=== PATIENT | male | born 1990 | race Caucasian/White ===

== ENCOUNTER 2017-02-27 11:59 | Emergency (ER) | payer OTHER ==
--- NOTE | ~2017-02-27 | EKG ---
PATIENT: LIZ CLARK UNIT #: [id number] Ventricular Rate: 83 BPM Atrial Rate: 83 BPM P-R Interval: 166 ms QRS Duration: 104 ms Q-T Interval: 348 ms QTC Calculation(Bezet): 408 ms P Wan[place]: 78 degrees Calculated R Wan[place]: 91 degrees Calculated T Wan[place]: 65 degrees Diagnosis Line: Normal sinus rhythm Diagnosis Line: Rightward axis Diagnosis Line: Borderline ECG Diagnosis Line: No previous ECGs available Diagnosis Line: Confirmed by YOON GUTIERREZ MD ([id number]) on Diagnosis Line: 02/28/2017 9:07:00 PM INTERPRETING MD: NORMA
--- NOTE | ~2017-02-27 | CR72 ---
[facility] A Service of [facility] & [facility] RADIOLOGY TEXT RESULTS PATIENT: LIZ CLARK LOCATION: [facility] : 88 UNIT #: [id number] AGE: [address]: Madhav Lomax MD SEX: M ORDER DR: [id number] [facility] [address] [facility] [place] [facility] [place], [place] [address] [id number] E MR#: [id number] Acc #: [id number] NAME: LIZ CLARK : 1990 SEX: M STUDY DATE/TIME: 02/27/2017 12:58 UNIT: [facility] ROOM: STUDY DESCRIPTION: CR Chest Single View Portable Attending Physician: Madhav Lomax M.D. Ordering Physician: Madhav Lomax M.D. Primary Care Physician: Winnie Ferguson M.D. MEDICAL IMAGING REPORT This report is preliminary unless electronic signature is present EXAM Chest, portable, 02/27/2017, 1258 hours. CLINICAL HISTORY Left-sided chest pain with shortness of air for 2 days. COMPARISON None FINDINGS Portable upright chest demonstrates normal cardiac, mediastinal, and hilar contours. There is mild basilar vascular prominence but no edema, pneumonia, or effusion seen. IMPRESSION No acute cardiopulmonary findings. Dictated by... Radha Landeros M.D. THIS IS AN ELECTRONICALLY VERIFIED REPORT Radha Landeros M.D. at 02/27/2017 7:31 PM ELLIE/medardo TD: 02/27/2017 14:42 JOB #: [id number] MEDICAL IMAGING REPORT Page 1 of 1 COPY
[~2017-02-27 11:59] MED LIST: ADDERALL PO; IBUPROFEN PO; IBUPROFEN400 MG PO; KETOPROFEN PO; NAPROSYN250 M1 PO; VYVANSE20 MG PO
[2017-02-27 12:36] LABS: BASOPHIL# 0.1 X10e3 (0-0.3); EOSINOPHIL# 0.1 X10e3 (0-0.7); EOSINOPHIL% 1.2 % (0.0-7.0); HEMATOCRIT 47.1 % (38.0-50.0); HEMOGLOBIN 16.1 gm/dL (13.0-16.0); LYMPHOCYTE# 2.3 X10e3 (1.0-3.5); LYMPHOCYTE% 38.5 % (17.0-45.0); MEAN CELL VOLUME 83.1 FL (83-96); MEAN CORPUSCULAR HEMOGLOBIN 28.4 PG (28-34); MEAN CORPUSCULAR HGB CONC 34.1 g/dL (30-36); MEAN PLATELET VOLUME 8.8 FL (6.5-11.5); MONOCYTE# 0.2 X10e3 (0-1.0); MONOCYTE% 3.7 % (3.0-12.0); NEUTROPHIL# 3.3 X10e3 (1.5-7.1); NEUTROPHIL% 55.6 % (40-75); PLATELET COUNT 170 X10e3 (140-420); RED BLOOD COUNT 5.66 X10e (3.90-5.60); RED CELL DISTRIBUTION WIDTH 13.7 % (11.0-15.5)
[2017-02-27 12:51] LABS: PARTIAL THROMBOPLASTIN TIME 31.1 SECONDS (23.5-31.3); PROTHROMBIN TIME (PATIENT) 10.4 SECONDS (9.6-11.5)
[2017-02-27 12:52] LABS: DIFF IND NO
[2017-02-27 12:59] LABS: POC - TROPONIN <0.05 ng/mL (<=0.05)
[2017-02-27 13:02] LABS: ALBUMIN SERUM 4.5 g/dL (3.5-5.0); BILIRUBIN, DIRECT 0.1 mg/dL (0.0-0.2); BILIRUBIN,INDIRECT 0.7 mg/dL (0.0-0.9); BILIRUBIN,TOTAL 0.8 mg/dL (0.2-2.0); CALCIUM SERUM 9.4 mg/dL (8.4-10.2); GLOM FILT RATE Estimated 102.7 mL/min (>60); POTASSIUM 3.6 mmol/L (3.5-5.1); PROTEIN TOTAL SERUM 7.2 g/dL (6.0-8.3)
== END 2017-02-27 14:41 | disposition home or self-care (01) ==
LOC: CED 11:59
PROVIDERS: Emergency Medicine
DX: R07.89 Other chest pain (principal)
CPT/HCPCS: 36415; 71010; 80048; 80076; 82553; 84484; 85025; 85379; 85610; 85730; 93005; 96374; 99285; J1885